=== PATIENT | female | born 1940 | race Caucasian/White ===

== ENCOUNTER 2024-02-28 22:05 | Emergency (ER) | payer OTHER, SELFPAY ==
[2024-02-28 22:09] VITALS: BP 162/91
[2024-02-28 23:05] LABS: % Basophils 1.2 % (0-2); % Eosinophils 11.4 % (0-6); % Immature Granulocytes 0.2 % (0-0.5); % Lymphocytes 30.5 % (20.5-51.1); % Monocytes 8.9 % (1.7-9.3); % Neutrophils 47.8 % (42.2-75.2); Absolute Basophils 0.1 10^3/uL (0-0.2); Absolute Eosinophils 0.5 10^3/uL (0-0.7); Absolute Lymphocytes 1.3 10^3/uL (1.2-3.4); Absolute Monocytes 0.4 10^3/uL (0.1-0.6); Absolute Neutrophils 2.1 10^3/uL (1.4-6.5); Hematocrit 37.1 % (37.0-47.0); Hemoglobin 11.4 g/dL (12.0-16.0); Mean Corp Hgb Conc. 30.7 g/dL (33.0-37.0); Mean Corpuscular Hgb 24.5 pg (27.0-31.0); Mean Corpuscular Volume 79.6 fL (81.0-99.0); Mean Platelet Volume 9.9 fL (7.4-10.4); Nucleated Red Blood Cells % 0 %; Platelet Count 255 10^3/uL (130-400); Red Blood Cell Count 4.66 10^6/uL (4.20-5.40); Red Cell Dist. Width 15.6 % (11.5-14.5); White Blood Cell Count 4.3 10^3/uL (4.8-10.8)
[2024-02-28 23:13] LABS: ALT (SGPT) 11 U/L (0-35); AST (SGOT) 21 U/L (14-36); Albumin 4.4 g/dl (3.5-5.0); Alkaline Phosphatase 79 U/L (38-126); Blood Urea Nitrogen 18 mg/dl (7-17); Carbon Dioxide 30 mmol/L (22-30); Chloride 103 mmol/L (98-107); Glucose 86 mg/dl (70-99); Potassium 3.7 mmol/L (3.5-5.1); Sodium 139 mmol/L (135-145); Total Bilirubin 0.3 mg/dl (0.2-1.3); Total Protein 7.1 g/dl (6.3-8.2); eGFR > 60.00
[2024-02-28 23:24] LABS: Troponin I < 0.012 ng/ml
--- NOTE | 2024-02-29 01:31 | ED.GENMED ---
History of Present Illness
General
Chief Complaint: Blood Pressure Problem
Source: patient
Exam Limitations: none
Time Seen by Provider: 02/29/24 00:30
Nursing documentation reviewed up to this point in time: agreed with
History of Present Illness
History of Present Illness:
83-year-old female presenting to the emergency department today after having a 'weird' sensation to her chest prior to arrival. Notes her blood pressure is elevated as well. Claims that symptoms have improved. She otherwise has been feeling
ongoing anxiety. Denies any thoughts of harming herself or others.
Review of Systems
Review of Systems
Allergies reviewed?: Yes
All Other Systems: ROS reviewed and negative except as documented in HPI and ROS
Phy Exam
Physical Exam
Physical Exam:
GENERAL: Alert , in no apparent distress
EYE: pupils equal and reactive
NECK: Supple, no significant adenopathy.
ENT: o/p clr, mmm.
CARDIAC: Regular rate and rhythm .
LUNGS: Clear breath sounds bilaterally, no acute respiratory distress, no wheezes/rales/rhonchi
ABDOMEN: Soft, without focal tenderness, no r/g, no cvat
NEUROLOGICAL: Alert and oriented, no focal neuro deficits
SKIN: Warm and dry, skin intact.
MUSCULOSKELETAL: No edema, well perfused.
PSYCH: Normal and appropriate interaction.
Course
Orders/Labs/Results
Orders:
Orders
02/28/24 22:12
EKG [Electrocardiogram (*1)] Urgent
Reason for Study: Chest Pain
02/28/24 22:13
EKG- Treatment ONCE
02/28/24 22:52
Complete Blood Count/With Diff Urgent
Comprehensive Metabolic Panel Urgent
Troponin I Urgent
02/29/24 00:30
Chest [CR Chest - 2 Views ] Urgent
Comment:
Reason For Exam: cp
Abnormal Lab Results
02/28/24
22:52
WBC 4.3 L 10^3/uL
(4.8-10.8)
Hgb 11.4 L g/dL
(12.0-16.0)
MCV 79.6 L fL
(81.0-99.0)
MCH 24.5 L pg
(27.0-31.0)
MCHC 30.7 L g/dL
(33.0-37.0)
RDW 15.6 H %
(11.5-14.5)
Eosinophils % 11.4 H %
(0-6)
BUN 18 H mg/dl
(7-17)
02/28/24 22:52
02/28/24 22:52
Vital Signs
Initial and Last Documented VS:
Initial Vital Signs
Temp Pulse Resp BP Pulse Ox
97.4 F 81 20 162/91 99
02/28/24 22:09 02/28/24 22:09 02/28/24 22:09 02/28/24 22:09 02/28/24 22:09
Last Documented Vital Signs
Temp Pulse Resp BP Pulse Ox
97.4 F 81 20 162/91 99
02/28/24 22:09 02/28/24 22:09 02/28/24 22:09 02/28/24 22:09 02/28/24 22:09
MDM/Problems Addressed
MDM/Problems Addressed:
83-year-old female presenting to the emergency department after a 'weird' sensation to her chest prior to arrival. She has had many similar symptoms in the past that she believes are panic attacks. Here EKG without emergent findings x-ray without
emergent findings labs unremarkable troponin negative. Patient asymptomatic here. Symptoms happened a few hours prior to arrival thus troponin does not appear to be needed to be repeated. She otherwise advised for close outpatient follow-up and
monitoring. Return precautions given
*Critical Care Note
Total Time (30-74mins, 75-104mins- exclusive of procedures): Not Applicable
ED Attending Note
-
Portions of this chart may have been created with voice recognition software.� Occasional wrong word or��sound alike� substitutions may have occurred due to the inherent limitations of voice recognition software.
Discharge Plan
Departure
Patient Disposition: Home (Routine Discharge)
Date of Disposition: 02/29/24
Time of Disposition: 01:33
Patient with high blood pressure during this ER visit?: No
Condition: Good
Covid-19: Not Applicable
Discharge Problem:
Chest pain
Instructions: Chest Pain PCP Follow Up, BLOOD PRESSURE
Activity Restrictions/Additional Instructions:
You came to the emergency department today with concerns of chest pain. Here you had a reassuring assessment. Please follow closely with your primary care doctor within 1 to 2 weeks. Return to the emergency department for any worsening, new or
concerning symptoms.
Interventions
Interventions:
*Risk Screen - Suicide Last Done: 02/28/24 22:09
*General Assessment Last Done: 02/28/24 22:09
*Neglect/Abuse Screening Last Done: 02/28/24 22:09
ED- Fall Risk Assessment Last Done: 02/28/24 22:09
*ED COVID-19 Vaccine History Last Done: 02/28/24 22:09
Discharge Date and Time
Print Language: ARMENIAN
== END 2024-02-29 04:30 | disposition home or self-care (01) ==
LOC: EMR 22:05
PROVIDERS: Emergency Medicine; EMERGENCY PHYSICIAN Student in an Organized Health Care Education/Training Program
DX: R07.89 Other chest pain (principal); F41.9 Anxiety disorder, unspecified
CPT/HCPCS: 99283; 71046; 80053; 84484; 85025; 93005

== ENCOUNTER 2024-11-22 04:55 | Emergency (ER) | payer MEDICARE, OTHER, SELFPAY ==
[2024-11-22 05:46] VITALS: BP 149/81
[2024-11-22 05:47] LABS: Hematocrit 35.4 % (37.0-47.0); Hemoglobin 11.8 g/dL (12.0-16.0); Mean Corp Hgb Conc. 33.3 g/dL (33.0-37.0); Mean Corpuscular Volume 82.7 fL (81.0-99.0); Nucleated Red Blood Cells % 0 %; Platelet Count 168 10^3/uL (130-400); Red Cell Dist. Width 13.7 % (11.5-14.5)
[2024-11-22 06:00] VITALS: BP 133/78
--- NOTE | 2024-11-22 06:03 | ED.GENMED ---
History of Present Illness
General
Chief Complaint: Anxiety
Time Seen by Provider: 11/22/24 06:02
History of Present Illness
History of Present Illness:
FOCUSED PAST MEDICAL HISTORY
- Iron deficiency anemia, anxiety/depression
REVIEW OF OLD RECORDS
- I reviewed records, the patient was seen here with chest pain in February 2024t that time she had an unremarkable ED workup
Note:
CHIEF COMPLAINT(S)
Anxiety and swelling in the legs and feet.
HISTORY OF PRESENT ILLNESS
The patient is an 84-year-old female with a history of anxiety presenting to the emergency room due to increased anxiety and noticeable swelling in her legs and feet. She mentions losing 25 pounds after her daughters four years ago,
correlating her weight loss with a decreased appetite during periods of anxiety. The patient denies chest pain but reports experiencing nervousness. She usually manages her anxiety with alprazolam (Xanax), prescribed at 0.5 mg to be taken up to four
times daily, although she typically takes only two doses per day. Today, she has requested an immediate dose due to heightened anxiety.
The patient arrived at the ER by ambulance after an unsuccessful attempt by her son to take her to urgent care, which was closed. The patient denies having diabetes and confirms not currently being on antibiotics. She reports this occurrence after
missing sleep for two nights. The plan includes administering a dose of alprazolam 0.5 mg and prescribing antibiotics for the suspected skin infection.
PHYSICAL EXAM
General: Alert, but appears rather anxious, low BMI
Skin: Warm, dry, noticeable redness and slight tenderness at the left big toe.
Head: Normocephalic, atraumatic.
Neck: Supple, trachea midline.
Ears, Nose, Mouth, and Throat: Oral mucosa moist.
Cardiovascular: Normal peripheral perfusion
Respiratory: Respirations are non-labored.
Gastrointestinal: Abdomen nondistended.
Back: Normal range of motion, Normal alignment.
Musculoskeletal: Normal range of motion, normal strength. Bilateral pedal edema, On examination, the patients left great toe appeared red and slightly tender to touch.
Neurological: Alert and oriented to person, place, time, and situation, no focal neurological deficit observed.
Psychiatric: Cooperative, appropriate mood & affect.
PLAN
- Administer 0.5 mg of alprazolam for anxiety.
- Prescribe antibiotics for the suspected skin infection in the left big toe and send the prescription to the patients pharmacy.
- Arrange for assistance to aid the patient in using the restroom
DIFFERENTIAL DIAGNOSIS
The differential diagnosis includes, in no particular order and is not limited to:
1. Anxiety disorder
2. Cellulitis
3. Heart failure
4. Thrombophlebitis
5. Lymphedema
6. Deep vein thrombosis
7. Venous insufficiency
8. Medication side effect
9. Dermatologic infection
10. Possible stress-induced anorexia or weight loss.
EKG
- Sinus 77, normal axis, no acute ST abnormality, borderline septal Q waves similar to prior
LABS
- White count is 3.9, hemoglobin is 11.8, chemistries and troponin unremarkable
UPDATE
-SUMMARY OF ENCOUNTER
The patient, an 84-year-old female with a history of anxiety, presented to the emergency department with increased anxiety and swelling in the legs and feet. She reports weight loss correlating with anxiety episodes and denies chest pain but feels
nervous. Her left big toe is red and slightly tender, suspecting a possible infection. The physical exam was unremarkable aside from the localized issue with the toe. Blood tests, including white cell count, chemistry levels, and troponin, were
normal, ruling out cardiac concerns. The management focused on addressing her anxiety and potential infection in the toe. She was administered alprazolam 0.5 mg for anxiety relief and prescribed cephalexin (Keflex) for the suspected infection.
DISPOSITION
Discharge.
ASSESSMENT
1. Anxiety disorder
2. Possible cellulitis of the left big toe.
EMERGENCY TREATMENTS ADMINISTERED
Alprazolam 0.5 mg orally for anxiety.
PLAN
Administered alprazolam for anxiety. Prescribed cephalexin for the suspected skin infection in the left big toe.
MEDICATION RECONCILIATION
Administered: Alprazolam 0.5 mg orally. Prescribed: Cephalexin 500 mg four times daily for skin infection.
MEDICAL DECISION MAKING
-Complexity of Data Reviewed: Chronic conditions affecting care include anxiety disorder. The differential diagnosis considered includes anxiety disorder, cellulitis, heart failure, thrombophlebitis, lymphedema, deep vein thrombosis, venous
insufficiency, medication side effect, dermatologic infection, and stress-induced anorexia or weight loss.
-Data:
Category 1
Reviewed laboratory results, including normal white blood cell count, chemistry levels, and troponin tests.
Category 2
No information from an independent historian was utilized.
Category 3
There is no mention of discussions with other healthcare providers.
DIAGNOSIS
Anxiety disorder (ICD-10: F41.9)
Possible cellulitis of the left big toe (ICD-10: L03.039)
Past History
Past History
ED Past Medical History: Psychiatric (Anxiety, depression) and Other (Back pain, palpitations)
Social History
Tobacco: Former smoker
Phy Exam
Physical Exam
Physical Exam:
See HPI
Course
Orders/Labs/Results
Orders:
Orders
11/22/24 05:16
Electrocardiogram (*1) Urgent
Reason for Study: Chest Pain
Cardiac Monitoring- Treatment ONCE
EKG- Treatment ONCE
IV Insert/Care/Rem.- Treatment PRN
O2 Therapy [RESP] Urgent
Titrate/Wean O2 to maintain O2 sat greater than (%): 90
Special Instructions: Maintain sats >/=90%
Pulse Ox/spot Check [RESP] Urgent
Quantity: 1
Special Instructions: ON ROOM AIR
11/22/24 05:36
Complete Blood Count/With Diff Urgent
Comprehensive Metabolic Panel Urgent
Troponin I Urgent
11/22/24 06:20
Alprazolam [Xanax] 0.5 mg PO NOW STA
Cephalexin Monohydrate [Keflex] 500 mg PO NOW STA
Abnormal Lab Results
11/22/24
05:36
WBC 3.9 L 10^3/uL
(4.8-10.8)
Hgb 11.8 L g/dL
(12.0-16.0)
Hct 35.4 L %
(37.0-47.0)
Absolute Lymphs (auto) 1.1 L 10^3/uL
(1.2-3.4)
Eosinophils % 10.2 H %
(0-6)
BUN 19 H mg/dl
(7-17)
Glucose 105 H mg/dl
(70-99)
11/22/24 05:36
11/22/24 05:36
Vital Signs
Initial and Last Documented VS:
Initial Vital Signs
Temp Pulse Resp BP Pulse Ox
37.1 C 60 24 149/81 100
11/22/24 05:46 11/22/24 05:46 11/22/24 05:46 11/22/24 05:46 11/22/24 05:46
Last Documented Vital Signs
Temp Pulse Resp BP Pulse Ox
37.1 C 60 24 149/81 100
11/22/24 05:46 11/22/24 05:46 11/22/24 05:46 11/22/24 05:46 11/22/24 06:05
*Pulse Oximetry
SaO2: 100
Oxygen Mode of Delivery: Room air
Patient hypoxic: no
*Critical Care Note
Total Time (30-74mins, 75-104mins- exclusive of procedures): Not Applicable
ED Attending Note
-
Portions of this chart may have been created with voice recognition software.� Occasional wrong word or��sound alike� substitutions may have occurred due to the inherent limitations of voice recognition software.
Discharge Plan
Departure
Prescriptions:
No Action
bisacodyl [Dulcolax (bisacodyl)] 10 mg suppository
10 mg TX DAILY PRN (Reason: Constipation) Qty: 12 0RF
bisacodyl 10 mg suppository
10 mg TX DAILY PRN (Reason: Constipation) Qty: 12 0RF
Referrals:
UNKNOWN,NO INTERVIEW [Family Provider]
Interventions
Interventions:
*Risk Screen - Suicide Last Done: 11/22/24 05:46
*General Assessment Last Done: 11/22/24 05:46
*Neglect/Abuse Screening Last Done: 11/22/24 05:46
*ED- Fall Risk Assessment Last Done: 11/22/24 05:46
*ED COVID-19 Vaccine History Last Done: 11/22/24 05:46
*ED Influenza Vaccine History Last Done: 11/22/24 05:46
Discharge Date and Time
Print Language: FRENCH
[2024-11-22 06:13] LABS: ALT (SGPT) 12 U/L (0-35); AST (SGOT) 23 U/L (14-36); Albumin 4.1 g/dl (3.5-5.0); Alkaline Phosphatase 58 U/L (38-126); Blood Urea Nitrogen 19 mg/dl (7-17); Calcium 9.8 mg/dl (8.4-10.2); Carbon Dioxide 26 mmol/L (22-30); Chloride 107 mmol/L (98-107); Estimated Creatinine Clearance 52 ml/min; Glucose 105 mg/dl (70-99); Potassium 4.0 mmol/L (3.5-5.1); Sodium 138 mmol/L (135-145); Total Protein 6.6 g/dl (6.3-8.2); eGFR > 60.00
[2024-11-22 06:21] LABS: Troponin I < 0.012 ng/ml
[2024-11-22] MEDS: XANAX 0.5 MG PO (06:29)
[2024-11-22] MEDS: KEFLEX 500 MG PO (06:29)
[2024-11-22 07:37] VITALS: BP 144/100
== END 2024-11-22 07:38 | disposition home or self-care (01) ==
LOC: EMR 04:55
PROVIDERS: Emergency Medicine; EMERGENCY PHYSICIAN Emergency Medicine
DX: F41.9 Anxiety disorder, unspecified (principal); M79.89 Other specified soft tissue disorders; Z87.891 Personal history of nicotine dependence; Z86.2 Personal history of diseases of the blood and blood-forming organs and certain disorders involving the immune mechanism
CPT/HCPCS: 99284; 80053; 84484; 85025; 93005

== ENCOUNTER 2024-11-29 05:16 | Emergency (ER) | payer MEDICARE, OTHER, SELFPAY ==
[2024-11-29 05:33] VITALS: BP 139/76
[2024-11-29 08:57] VITALS: BP 141/71
--- NOTE | 2024-11-29 09:12 | ED.GENMED ---
History of Present Illness
General
Chief Complaint: Abdominal Symptoms
Source: patient
Exam Limitations: none
Time Seen by Provider: 11/29/24 08:57
History of Present Illness
History of Present Illness:
See MDM
Past History
Past History
ED Past Medical History: Psychiatric (Anxiety, depression) and Other (Back pain, palpitations)
Social History
Tobacco: Former smoker
Phy Exam
Physical Exam
Physical Exam:
See MDM
Course
Orders/Labs/Results
Orders:
Orders
11/29/24 10:27
Case Management Consult ONCE
Case Management Consult: Discharge Planning
11/29/24 09:10
11/29/24 09:10
Vital Signs
Initial and Last Documented VS:
Initial Vital Signs
Temp Pulse Resp BP Pulse Ox
97.6 F 84 20 139/76 98
11/29/24 05:33 11/29/24 05:33 11/29/24 05:33 11/29/24 05:33 11/29/24 05:33
Last Documented Vital Signs
Temp Pulse Resp BP Pulse Ox
97.6 F 84 20 141/71 98
11/29/24 05:33 11/29/24 05:33 11/29/24 05:33 11/29/24 08:57 11/29/24 09:13
MDM/Problems Addressed
Differential Diagnosis Includes:
Note:
CHIEF COMPLAINT(S)
Abdominal pain and constipation.
HISTORY OF PRESENT ILLNESS
The patient is an 84-year-old female who presents with complaints of abdominal pain and constipation. She reports not having had a bowel movement for an unspecified duration, whereas she typically moves her bowels every couple of days. She denies
any episodes of vomiting. The abdominal pain she experiences causes distress and fear of the underlying cause. The patient describes her abdominal pain as being particularly intense, especially when her abdomen is palpated. There is no passage of
gas, as noted by the patient. The clinical discussion involves consideration of performing a rectal examination and possibly administering an enema if a significant accumulation of stool is detected. Should these interventions not clarify the cause
of her symptoms, a computed tomography (CT) scan is proposed to assess for potential obstructions or other intra-abdominal pathology. This would involve starting an intravenous line, obtaining blood work, and administering pain medication as needed.
I performed a rectal exam with nurse pit crew support worker Bernadette at bedside. No stool noted in the rectum
PHYSICAL EXAM
General: Alert, no acute distress. Frail
Skin: Warm, dry.
Head: Normocephalic, atraumatic
Neck: Appears supple, trachea midline.
Eyes, Ears, Nose, Mouth, and Throat: Moist mucous membranes
Cardiovascular: No signs of cyanosis
Respiratory: Respirations are non-labored.
Abdomen: Non-distended. No significant tenderness
Rectal: No stool palpation in the rectal vault
Musculoskeletal: No deformities
Neurological: No focal neurological deficit observed.
Psychiatric: Cooperative, appropriate mood and affect.
PLAN
- Perform a rectal examination to ascertain the presence of stool and determine if immediate relief can be provided.
- If significant stool is noted, consider administering an enema.
- If the rectal examination does not reveal substantial findings, proceed with a CT scan of the abdomen to identify any potential blockages, infections, or swelling.
- Initiate an intravenous line, conduct relevant blood tests, and administer pain medication as required.
DIFFERENTIAL DIAGNOSIS
The Differential Diagnosis includes, in no particular order and is not limited to:
1. Constipation
2. Intestinal obstruction
3. Bowel perforation
4. Appendicitis
5. Diverticulitis
6. Gastroenteritis
7. Inflammatory bowel disease
8. Ischemic bowel disease
9. Colorectal cancer
10. Gynecological issues (e.g., ovarian torsion or mass)
11/29/24 - 10:27
Patient is showing improvement with noticeable healing. No longer desires blood work or CT scan. Eating without difficulty. Appears well and non-toxic. Discussed potential risks of foregoing CT scan, including ruling out conditions such as small
bowel obstruction, intra-abdominal mass, cancer, or other infections. Patient understands risks, has capacity to make informed decision, and is comfortable proceeding without further diagnostic testing.
SUMMARY OF ENCOUNTER
The patient, an 84-year-old female, presented to the emergency department with complaints of abdominal pain attributed to constipation. Upon examination, her abdomen was non-distended, with no clinical evidence suggesting a small bowel obstruction.
Despite initial consideration for testing, the patient decided against proceeding with further diagnostic evaluations. We discussed the possibility of missing serious conditions such as cancer, infection, or surgical pathologies; the patient
understood these risks but was comfortable with discharge.
ASSESSMENT
Abdominal pain potentially secondary to constipation. Rule out more serious conditions such as bowel obstruction, infection, cancer, or other surgical pathologies.
PLAN
- Discuss the patients symptoms and possible differential diagnoses.
- Provide reassurance of the absence of small bowel obstruction from clinical examination.
- Discuss potential signs and symptoms requiring urgent re-evaluation.
PATIENT EDUCATION AND COUNSELING
The patient was informed about the potential risks associated with her decision to forego further testing, including the risk of missing more serious conditions like cancer, infections, or surgical issues. She was advised on when to seek immediate
medical attention if symptoms worsen or new symptoms appear.
FOLLOW-UP INSTRUCTIONS
Since the patient does not have a primary care doctor, she was provided information about the family medicine residency clinic for follow-up care.
MEDICAL DECISION MAKING
- Complexity of Data Reviewed: Chronic conditions affecting care. Differential diagnosis considers constipation, intestinal obstruction, bowel perforation, appendicitis, diverticulitis, gastroenteritis, inflammatory bowel disease, ischemic bowel
disease, colorectal cancer, gynecological issues.
- Risk: Decisions regarding diagnostic testing were discussed, and the patient opted against further testing after understanding the potential risks and complications.
DIAGNOSIS
- Constipation (ICD-10: K59.00)
- Abdominal pain, unspecified (ICD-10: R10.9)
*Pulse Oximetry
SaO2: 98
Oxygen Mode of Delivery: Room air
Patient hypoxic: no
*Critical Care Note
Total Time (30-74mins, 75-104mins- exclusive of procedures): Not Applicable
ED Attending Note
-
Portions of this chart may have been created with voice recognition software.� Occasional wrong word or��sound alike� substitutions may have occurred due to the inherent limitations of voice recognition software.
Discharge Plan
Departure
Patient Disposition: Home (Routine Discharge)
Date of Disposition: 11/29/24
Time of Disposition: :
Patient with high blood pressure during this ER visit?: No
Discharge Problem:
Abdominal pain
Prescriptions:
No Action
bisacodyl [Dulcolax (bisacodyl)] 10 mg suppository
10 mg IA DAILY PRN (Reason: Constipation) Qty: 12 0RF
bisacodyl 10 mg suppository
10 mg IA DAILY PRN (Reason: Constipation) Qty: 12 0RF
cephalexin 500 mg tablet
500 mg PO TID Qty: 21 0RF
Referrals:
[facility] [Provider Group]
UNKNOWN - PT DOES,NOT KNOW [Family Provider]
Activity Restrictions/Additional Instructions:
Please return for any worsening symptoms.
You may return at any time if you have further concerns.
Please follow up with the family medicine clinic at the first available appointment, preferably this week.
Although we are presuming your symptoms are related to constipation, there are other diagnostic possibilities. Although not limited to, we have the potential of missing other diagnoses such as intra-abdominal infections, intra-abdominal masses or
possible cancer or surgical issues if the CT is not performed. I do suggest you having this conversation with your primary care doctor and would also suggest that you return to the emergency department at any time if you feel uncomfortable or
symptoms worsen.
Thank you for choosing [facility].
Interventions
Interventions:
*Risk Screen - Suicide Last Done: 11/29/24 05:33
*General Assessment Last Done: 11/29/24 05:33
*Neglect/Abuse Screening Last Done: 11/29/24 05:33
*ED- Fall Risk Assessment Last Done: 11/29/24 05:33
*ED COVID-19 Vaccine History Last Done: 11/29/24 05:33
*ED Influenza Vaccine History Last Done: 11/29/24 05:33
TQ-Kacods-Dpylfzulxv Assessment Last Done: 11/29/24 09:16
Discharge Date and Time
Print Language: PORTUGUESE
--- NOTE | 2024-11-29 11:38 | CM ---
Patient asking for ride to home s/p ed visit. no other options for transportation home. CM will continue to follow for discharge planning needs.
== END 2024-11-29 11:45 | disposition home or self-care (01) ==
LOC: EMR 05:16
PROVIDERS: EMERGENCY PHYSICIAN Student in an Organized Health Care Education/Training Program
DX: K59.00 Constipation, unspecified (principal); R10.9 Unspecified abdominal pain; Z87.891 Personal history of nicotine dependence
CPT/HCPCS: 99282